=== PATIENT | female | born 1980 | race Two or more races ===

== ENCOUNTER 2016-09-21 08:21 | Emergency (ER) | payer SELFPAY ==
[~2016-09-21] VITALS: Ht 162.6 cm; Wt 47.6 kg
--- NOTE | 2016-09-21 08:40 | Emergency Room Report ---
History of Present Illness General Chief Complaint: Vaginal Source: Patient Present Illness HPI Patient presents with redness and slight discharge in the vaginal area. She denies any pain there but some irritation on the external area. She doesn't think she is at this time. Her last period was August 22. G2.. She's traveling. She denies any fevers, chills, nausea, vomiting, diarrhea. She is a history of anemia after losing blood from her last . Her youngest child is 3 years old at this time. Allergies: Coded Allergies: No Known Allergies (Unverified , 09/21/16) Patient History Past Medical History: see triage record Social History Narrative Last Menstrual Period: 08/22/2016 Reviewed Nursing Documentation: PMH: Agreed, PSxH: Agreed Nursing Documentation-PMH Past Medical History: No Stated History Review of Systems All Other Systems: negative except mentioned in HPI Physical Exam Vital Signs Date Time Temp Pulse Resp B/P Pulse Ox O2 Delivery O2 Flow Rate FiO2 09/21/16 08:25 98.2 58 14 94/64 99 Room Air Sp02 EP Interpretation: reviewed, normal General Appearance: well appearing, no apparent distress Head: normocephalic, atraumatic Eyes: bilateral eye PERRL, bilateral eye conjunctivae pale ENT: hearing grossly normal, normal voice Neck: full range of motion, supple Respiratory: no respiratory distress, speaking full sentences Cardiovascular #1: regular rate, rhythm Gastrointestinal: normal bowel sounds, non tender, soft, no mass Genitourinary: urethra normal, other - labial erythema, d/c vaginal = greenish Musculoskeletal: no calf tenderness Neurologic: alert, normal gait Psychiatric: mood/affect normal Skin: no rash Medical Decision Making Diagnostic Impression: Primary Impression: Vaginitis Qualified Codes: N76.0 - Acute vaginitis Additional Impression: UTI (urinary tract infection) Qualified Codes: N30.00 - Acute cystitis without hematuria ER Course Patient presents with inflammation in the external genital area and vaginal discharge. Differential includes vaginosis, sexually transmitted disease, labial infection. He lesions do not look herpetic. A urinalysis be sent and also test. In addition a wet mount and culture. Patient will need to be treated based on the wet mount. Antibiotics are indicated. She is . Labs c/w UTI. Wet mount was "negative". Based on the color and character of discharge she was treated with zithromax, macrobid and flagyl. I suggested that she follow up early next week and sooner if she was not improving. Patient stable for outpatient observation and treatment. Laboratory Tests Test 09/21/16 08:50 Urine Color Yellow Urine Appearance Slightly cloudy Urine pH 6 (4.5-8.0) Urine Specific [place] 1.020 (1.005-1.035) Urine Protein 2+ (NEGATIVE) H Urine Glucose (UA) Negative (NEGATIVE) Urine Ketones Negative (NEGATIVE) Urine Occult Blood 3+ (NEGATIVE) H Urine Nitrite Negative (NEGATIVE) Urine Bilirubin Negative (NEGATIVE) Urine Urobilinogen 1 MG/DL (0.0-1.0) H Urine Leukocyte Esterase 3+ (NEGATIVE) H Urine RBC 5-10 /HPF (0 - 2) H Urine WBC 30-40 /HPF (0 - 2) H Urine Squamous Epithelial Cells Few /LPF (NONE/OCC) Urine Bacteria Few /HPF (NONE) Urine Mucus Few /LPF (NONE/OCC) H Urine HCG, Qualitative Negative Chlamydia trachomatis RNA Pending Neisseria gonorrhoeae RNA Pending Microbiology Date/Time Source Procedure Growth Status 09/21/16 08:50 Vaginal Wet Prep - Final Complete Last Vital Signs Date Time Temp Pulse Resp B/P Pulse Ox O2 Delivery O2 Flow Rate FiO2 09/21/16 10:31 98.2 14 101/64 99 Room Air 09/21/16 08:25 58 Status: improved Disposition: HOME, SELF-CARE Condition: Improved Scripts Bacitracin (Bacitracin) 28.4 Gm Oint...g. 1 APPLIC TOPIC BID, #10 GM Prov: Rob King M.D. 09/21/16 Metronidazole* (FLAGYL*) 500 Mg Tablet 500 MG ORAL THREE TIMES A DAY, #20 TAB 0 Refills Prov: Rob King M.D. 09/21/16 Nitrofurantoin Monohyd/M-Cryst* (MACROBID 100 MG*) 100 Mg Capsule 100 MG ORAL EVERY 12 HOURS, #14 CAP Prov: Rob King M.D. 09/21/16 Referrals: NOT CHOSEN IPA/,REFERRING (PCP) Rob King M.D. Sep 21, 2016 08:40
[2016-09-21 09:06] LABS: APPEARANCE,URINE SLIGHTLY CLOUDY; KETONES,URINE NEGATIVE (NEGATIVE); LEUKOCYTE ESTERASE ,URINE 3+ (NEGATIVE); NITRITE,URINE NEGATIVE (NEGATIVE); PH,URINE 6 (4.5-8.0); PROTEIN,URINE 2+ (NEGATIVE); UROBILINOGEN,URINE 1 MG/DL (0.0-1.0)
[2016-09-21 09:14] LABS: BACTERIA,URINE FEW /HPF; MUCUS,URINE FEW /LPF (NONE/OCC); SQUAMOUS EPITHELIAL CELL,UR FEW /LPF (NONE/OCC); WBC,URINE 30-40 /HPF (0 - 2)
[2016-09-21] MEDS ORDERED: Azithromycin 250mg tab ORAL ONE (10:00)
[2016-09-21] MEDS ORDERED: NITROFURANTOIN100 M2 ORAL (10:16)
[2016-09-21] MEDS ORDERED: BACITRACIN15 GM TOPIC (10:16)
[2016-09-21] MEDS ORDERED: FLAGYL500 MG ORAL (10:16)
[2016-09-21 10:30] VITALS: BP 101/64
[2016-09-21 10:31] VITALS: BP 101/64
== END 2016-09-21 10:32 | disposition home or self-care (01) ==
LOC: EDBD 08:21 → EMR 08:33
DX: N76.0 Acute vaginitis (principal); N39.0 Urinary tract infection, site not specified
CPT/HCPCS: 81003; 81025; 87070; 87086; 87181; 87210; 87491; 87590; 99282